=== PATIENT | female | born 1990 | race African-American/Black ===

== ENCOUNTER 2016-09-18 18:30 | Inpatient (IN) | payer OTHER ==
[~2016-09-18] VITALS: Ht 165.1 cm; Wt 90.7 kg
--- NOTE | ~2016-09-18 | HP ---
Unit #: [id number] #: [id number] Patient: JOELLEN FAN [id number] [place] [address] [id number] I MR#: [id number] NAME: JOELLEN FAN ROOM: [facility] Age: 25 Sex: F Admission Date: 09/18/2016 : 1990 Attending Physician: Zeferino Cueto M.D. Admitting Physician: Zeferino Cueto M.D. Primary Care Physician: Lisa Aquino M.D. HISTORY AND PHYSICAL HISTORY OF PRESENT ILLNESS The patient is a 25-year-old female admitted to [address] [place] [address] on 09/18/2016 for psychosis. PAST MEDICAL HISTORY The patient denies. PAST SURGICAL HISTORY The patient denies. 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 She lives with someone named Justin. She smokes half pack of cigarettes daily and uses alcohol and marijuana occasionally. FAMILY HISTORY Noncontributory. ALLERGIES No known drug allergies. CURRENT MEDICATIONS 1. Invega. 2. Meloxicam. 3. Methocarbamol. 4. Propranolol. 5. Cassie. REVIEW OF SYSTEMS CONSTITUTIONAL: No fever or chills. HEENT: Denies any sore throat, ear pain or runny nose. CARDIOVASCULAR: Denies chest pain, irregular heart rhythm or palpitations. CHEST: Denies shortness of breath or cough. No hemoptysis. GASTROINTESTINAL: Denies nausea, vomiting, diarrhea or chronic constipation. ENDOCRINE: Denies history of increased thirst or urination. No recent significant weight loss or gain. GENITOURINARY: Denies dysuria, frequency, or hematuria. SKIN: Denies any rashes. HEMATOLOGIC: Denies history of increased bleeding or bruising. MUSCULOSKELETAL: Denies any hot, swollen joints. No generalized muscle pain. NEUROLOGIC: Denies problems with vision or speech. No frequent, severe Unit #: [id number] #: [id number] Patient: JOELLEN FAN headaches. No numbness, tingling or weakness in any extremities. Denies loss of bladder or bowel control. PHYSICAL EXAMINATION GENERAL: She is awake, alert, and oriented in no acute distress. VITAL SIGNS: Temperature 98.7, heart rate 100, respirations 18, blood pressure 149/93. HEIGHT: 5 feet 5. WEIGHT: 200 pounds. SKIN: Warm and dry without rash or lesion. HEENT: Normocephalic. TMs not viewed. Oral and nasal passages clear. Conjunctivae clear. PERRLA. EOMs intact. NECK: Supple without lymphadenopathy or thyromegaly. HEART: Regular rate and rhythm without murmur. LUNGS: Clear. ABDOMEN: Soft, nontender. : Not done. EXTREMITIES: No evidence of cyanosis, clubbing or edema. Moves all without focal deficit. NEUROLOGICAL: Grossly within normal limits. Cranial Nerves: II: Visual ohara are intact. III, IV AND : Extraocular movements are intact. Pupils are equal, round and reactive to light. V: Facial sensation is grossly normal. VII: Facial movements and expression are normal. VIII: Auditory acuity grossly intact. IX, X: Uvula is midline. Phonation is normal. XI: Patient shrugs shoulders and turns head normally. XII: Tongue protrudes in the midline. Sensory and Motor Function: Sensory and motor sensation is grossly normal. Motor: moves all extremities well. IMPRESSION 1. Psychiatric admission. 2. Nicotine dependence. RECOMMENDATIONS PSYCHIATRIC: Per psychiatrist. MEDICAL: No contraindication to participate in this facility activities. MEDICAL PROGNOSIS Good. MEDICAL CONDITION Stable. Dictated by... Chano Gonzalez TD: 09/19/2016 15:44 JOB #: [id number] Unit #: [id number] #: [id number] Patient: JOELLEN FAN HISTORY AND PHYSICAL Page 1 of 1 X WALLY CRUMP APRN HISTORY AND PHYSICAL
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
[2016-09-20 14:00] LABS: BASOPHIL% 0.6 % (0-2.5); EOSINOPHIL% 0.6 % (0.0-7.0); HEMATOCRIT 41.6 % (35.0-45.0); HEMOGLOBIN 13.9 gm/dL (12.0-16.0); LYMPHOCYTE# 1.5 X10e3 (1.0-3.5); LYMPHOCYTE% 21.1 % (17.0-45.0); MEAN CELL VOLUME 89.5 FL (83-96); MEAN CORPUSCULAR HEMOGLOBIN 29.8 PG (28-34); MEAN CORPUSCULAR HGB CONC 33.3 g/dL (30-36); MONOCYTE# 0.6 X10e3 (0-1.0); MONOCYTE% 8.5 % (3.0-12.0); NEUTROPHIL# 4.8 X10e3 (1.5-7.1); NEUTROPHIL% 69.2 % (40-75); PLATELET COUNT 292 X10e3 (140-420); RED BLOOD COUNT 4.64 X10e (3.90-5.30); RED CELL DISTRIBUTION WIDTH 12.6 % (11.0-15.5); WHITE BLOOD COUNT 6.9 X10e3 (4.0-10.5)
[2016-09-20 14:13] LABS: ALBUMIN SERUM 4.6 g/dL (3.5-5.0); BILIRUBIN,TOTAL 0.9 mg/dL (0.2-2.0); BUN/CREATININE RATIO 17.14; CALCIUM SERUM 9.3 mg/dL (8.4-10.2); CREATININE SERUM 0.7 mg/dL (0.6-1.4); GLOM FILT RATE Estimated 139.6 mL/min (>60); POTASSIUM 3.9 mmol/L (3.5-5.1); PROTEIN TOTAL SERUM 7.7 g/dL (6.0-8.3)
[2016-09-20 14:14] LABS: DIFF IND NO
[2016-09-20 14:41] LABS: THYROID STIMULATING HORMONE 0.87 uIU/ml (0.34-5.60)
[2016-09-20 14:48] LABS: FREE THYROXIN (T4) 1.02 ng/dL (0.58-1.64)
[2016-09-21 08:46] LABS: URINE SOURCE CLEAN CATCH
[2016-09-21 09:40] LABS: URINE APPEARANCE CLEAR; URINE BILIRUBIN NEG (NEG); URINE BLOOD NEG (NEG); URINE COLOR YELLOW; URINE GLUCOSE NEG (NEG); URINE KETONE 1+ (NEG); URINE LEUKOCYTE ESTERASE NEG (NEG); URINE NITRATE NEG (NEG); URINE PROTEIN NEG (NEG); URINE SPECIFIC GRAVITY 1.025 (1.003-1.035); URINE UROBILINOGEN 0.2 MG/DL (NEG)
[2016-09-21 09:59] LABS: AMPHETAMINE NEG (NEG); BARBITURATES NEG (NEG); BENZODIAZEPINES NEG (NEG); COCAINE NEG (NEG); MARIJUANA POS (NEG); OPIATES NEG (NEG); TRICYCLIC ANTIDEPRESSANTS NEG (NEG); U METHADONE NEG (NEG)
== END 2016-09-22 13:00 | disposition home or self-care (01) | DRG 885 ==
LOC: P1S 21:10
PROVIDERS: Psychiatry & Neurology Psychiatry
DX: F31.64 Bipolar disorder, current episode mixed, severe, with psychotic features (principal); F17.210 Nicotine dependence, cigarettes, uncomplicated; Z81.3 Family history of other psychoactive substance abuse and dependence
CPT/HCPCS: 80053; 80307; 81003; 84439; 84443; 84703; 85025